=== PATIENT | female | born 1995 | race Caucasian/White ===

== ENCOUNTER 2017-11-26 11:15 | Observation (INO) | payer OTHER ==
[~2017-11-26] VITALS: Ht 157.5 cm; Wt 52.2 kg
[~2017-11-26 11:15] MED LIST: SERT25TA PO
[2017-11-26] MEDS ORDERED: PREN-134 PO (12:25)
== END 2017-11-26 13:15 | disposition other institution (70) ==
LOC: 4S 11:15
PROVIDERS: ADMIT Obstetrics & Gynecology; ATTEND Obstetrics & Gynecology
DX: O21.2 Late vomiting of pregnancy (principal); O26.892 Other specified pregnancy related conditions, second trimester; R19.7 Diarrhea, unspecified; Z3A.25 25 weeks gestation of pregnancy
CPT/HCPCS: 59025; G0378